=== PATIENT | female | born 1990 | race Caucasian/White ===

== ENCOUNTER 2016-12-01 21:59 | Emergency (ER) | payer OTHER ==
[~2016-12-01] VITALS: Ht 175.3 cm; Wt 79.9 kg
[~2016-12-01 21:59] MED LIST: BUPR8SUB19 SL
[2016-12-01 22:10] VITALS: Ht 175.3 cm; Wt 79.9 kg
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
[2016-12-01 23:19] VITALS: BP 97/73; PULSE 111; TEMP 36.8; O2SAT 99
== END 2016-12-01 23:20 | disposition home or self-care (01) ==
LOC: EDBD 21:59 → C.EDB 22:00
DX: V47.6XXA Car passenger injured in collision with fixed or stationary object in traffic accident, initial encounter (principal); R52 Pain, unspecified; F17.200 Nicotine dependence, unspecified, uncomplicated